=== PATIENT | male | born 1970 | race Caucasian/White ===

== ENCOUNTER 2016-08-24 09:20 | Day surgery (SDC) | payer OTHER ==
[2016-08-24] MEDS ORDERED: LR 1,000 ML ONE (09:55)
[2016-08-24] MEDS ORDERED: ROCEPHIN 2 GM/NS 50 ML ONE (09:56)
[2016-08-24 10:23] LABS: MANUAL DIFF NEEDED? NO
[2016-08-24 10:27] LABS: BASO% 0.4 % (0.0-0.8); EOS# 0.85 X1000 (0.0-0.7); EOS% 6.3 % (0.0-10.0); HEMATOCRIT 40.2 % (42.0-52.0); IMM GRAN# 0.03 X1000 (0.0-0.04); IMM GRAN% 0.2 % (0.0-0.5); LYMPH# 3.04 X1000 (1.2-3.4); LYMPH% 22.6 % (20.5-51.1); MCH 30.8 PG (27-31); MCHC 34.8 g/dL (33-37); MCV 88.5 FL (81-99); MONO# 1.37 X1000 (0.11-0.59); MONO% 10.2 % (1.7-9.3); MPV 10.5 FL (7.4-10.4); NEUT% 60.3 % (42.2-75.2); PLT 229 X1000 (130-400); RBC 4.54 XMIL (4.7-6.1)
[2016-08-24 10:40] LABS: AGAP 17; BUN 11 mg/dL (8-22); CHLORIDE 91 mmol/L (98-107); COSMO 272; SODIUM 134 mmol/L (136-145); TCO2 26 mmol/L (25-35)
[2016-08-24] MEDS ORDERED: XYLOCAINE 2% JELLY UROJECT ONE (12:10)
[2016-08-24] MEDS ORDERED: B & O 16A SUPP ONE (12:40)
[2016-08-24] MEDS ORDERED: LR 500 ML ONE (12:55)
[2016-08-24] MEDS ORDERED: DIPRIVAN 1% ONE (13:00)
[2016-08-24] MEDS: MORPHINE ONE ×2 (13:10→13:27)
--- NOTE | 2016-08-24 13:37 | OPERATIVE NOTE ---
PROCEDURE DATE: 08/24/2016 PREOPERATIVE DIAGNOSES: 1. Bilateral flank pain, right flank pain being worse than the left. 2. Gross and microscopic hematuria. POSTOPERATIVE DIAGNOSES: 1. Medial deviation of the right mid and distal ureter. 2. Chronic prostatitis. 3. CT scan findings of colonic diverticulitis. PROCEDURES: 1. Cystoscopy. 2. Bilateral retrograde pyelogram. ANESTHESIA: General endotracheal. 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 CT scan, however, was negative for any tumor or stone or any obstruction. There was colonic diverticulitis, mostly in the right colon. He was brought in at this time for cystoscopy and retrograde pyelogram. KUB was negative for any calcification either. PROCEDURE: The patient was prepped and draped in dorsal lithotomy position under anesthesia. The patient had penile prosthesis. I was able to maneuver the #21 rigid cystoscope and the urethra was found to be normal. The prostatic urethra was open and there was some evidence of acute prostatitis. The bladder mucosa looked essentially normal. Both ureteral orifices were found to be normal and they were cannulated with #5 Colby catheter and retrograde pyelogram was done. The left upper tracts looked basically normal. On the left side, there was no evidence of any obstruction. On the right side, however, there was medial deviation of the right lower mid ureter and upper 1/3 of the distal ureter, possibly due to some pathology in the retroperitoneum or in the colon, but no filling defect was noted. The bladder was otherwise normal. The cystoscope was withdrawn. The patient tolerated the procedure well and returned to the recovery in stable condition. He will continue ciprofloxacin and I will see him next week in the office.
[2016-08-24] MEDS ORDERED: PERCOCET-5 ONE (13:49)
[2016-08-24] MEDS ORDERED: XYLOCAINE-MPF 2% ONE (13:52)
--- NOTE | 2016-08-24 13:53 | Diag Imaging Result Document ---
PROCEDURE NAME: RETROGRADES 2 OR 3 FILMS - 08/24/2016 BILATERAL RETROGRADE PYELOURETEROGRAM: COMPARISON: None available. FINDINGS: Seven spot fluoroscopic images were provided, which were performed during retrograde pyeloureterogram by Dr. Easton. The ureters are grossly normal in caliber. No discrete stricture or filling defect is identified. The right ureter deviates somewhat toward the midline at its superior aspect. This is nonspecific. I suppose it is possible that it is due to extrinsic mass effect. Please correlate clinically. The left ureter is grossly normal in course. Both the right and the left renal collecting systems are unremarkable. No hydronephrosis is appreciated. IMPRESSION: As above. Please correlate with live fluoroscopic imaging.
[2016-08-24 14:35] VITALS: BP 148/80
== END 2016-08-24 14:30 | disposition home or self-care (01) ==
LOC: OR 09:20
PROVIDERS: ATTEND Specialist
DX: N41.1 Chronic prostatitis (principal); R10.9 Unspecified abdominal pain; M54.9 Dorsalgia, unspecified; Q62.61 Deviation of ureter; R31.9 Hematuria, unspecified; F32.9 Major depressive disorder, single episode, unspecified; K57.32 Diverticulitis of large intestine without perforation or abscess without bleeding; Z96.0 Presence of urogenital implants; Z79.899 Other long term (current) drug therapy; Z79.4 Long term (current) use of insulin; Z79.84 Long term (current) use of oral hypoglycemic drugs
CPT/HCPCS: 74420; 80048; 82948; 85025; J0696; J2270; J7120; Q9966